=== PATIENT | male | born 1960 | race Caucasian/White ===

== ENCOUNTER 2018-07-29 08:50 | Day surgery (SDC) | payer MEDICAID ==
[2018-07-29] MEDS ORDERED: Sodium Chloride 0.9% 10 ML Syringe FLUSH PRN (09:00)
[2018-07-29] MEDS ORDERED: Sodium Chloride 0.9% 1,000 ML IV SCH (09:00)
[2018-07-29] MEDS ORDERED: Midazolam 1 MG/ML 2 ML SDV ONE (09:22)
[2018-07-29] MEDS ORDERED: Propofol 200 MG/20 ML SDV ONE ×2 (09:22→09:33)
[2018-07-29] MEDS ORDERED: Sodium Chloride 0.9% 1,000 ML ONE (10:10)
[2018-07-29] MEDS ORDERED: Midazolam 1 MG/ML 2 ML SDV IV ONE (10:21)
[2018-07-29] MEDS ORDERED: Propofol 200 MG/20 ML SDV IV ONE (10:21)
--- NOTE | 2018-07-29 10:23 | PCM.PN ---
- General Info Date of Service: 07/29/18 - Review of Systems Systems Review Comment:: 58 y/o male with history of colon polyps here for colonoscopy. He has a history of colon polyps. His last colonoscopy was 8 years ago. He is medically stable to proceed. He denies any recent colon symptoms. I have discussed the proposed colonoscopy with the patient. Risks such as but not limited to bleeding and GI injury reviewed. He appears to understand and agrees to proceed. His recent history and physical is reviewed and there is no significant changes noted. - Patient Data Vitals - Most Recent: Last Vital Signs Temp 97.8 F 07/29/18 09:00 Pulse 85 07/29/18 09:00 Resp 16 07/29/18 09:00 BP 122/84 07/29/18 09:00 Pulse Ox 98 07/29/18 09:00 Lab Results Last 24 Hours: Laboratory Results - last 24 hr 07/29/18 Range/Units 09:11 POC Glucose 107 H (74-106) mg/dl Med Orders - Current: Current Medications Sodium Chloride (Normal Saline) 1,000 mls @ 30 mls/hr IV ASDIRECTED SHAKIRA Sodium Chloride (Saline Flush) 10 ml FLUSH Q8HR PRN PRN Reason: keep vein open - Problem List Review Problem List Initiated/Reviewed/Updated: Yes - My Orders Last 24 Hours: My Active Orders 07/28/18 11:19 Resuscitation Status Routine 07/29/18 09:00 Blood Glucose Check, Bedside [RC] ONETIME Patient to Empty Bladder [RC] ASDIRECTED Peripheral IV Care [RC] . DIRECTED Verify Patient Consent Obtain [RC] ASDIRECTED Vital Signs [RC] PER UNIT ROUTINE Sodium Chloride 0.9% [Normal Saline] 1,000 ml IV ASDIRECTED Sodium Chloride 0.9% [Saline Flush] 10 ml FLUSH Q8HR PRN Peripheral IV Insertion Adult [OM.PC] Routine 07/29/18 Breakfast Nothing Per Oral Diet [DIET] - Assessment Assessment:: History of colon polyps - Plan Plan:: Colonoscopy
--- NOTE | 2018-07-29 11:08 | PCM.OPNOTE ---
- General Post-Op/Procedure Note Date of Surgery/Procedure: 07/29/18 Operative Procedure(s): Colonoscopy Findings: Moderate sized internal and external hemorrhoids Normal Colon Pre Op Diagnosis: History of Colon Polyps Post-Op Diagnosis: Hemorrhoids Anesthesia Technique: MAC Primary Surgeon: Francois Noland Pathology: none Output, Urine Amount: 0 EBL in mLs: 0 Complications: None Condition: Good
[2018-07-29 13:30] VITALS: BP 104/73
--- NOTE | 2018-07-29 17:17 | OR ---
DATE OF SURGERY: 07/29/2018 SURGEON: Francois Noland MD PREOPERATIVE DIAGNOSIS: History of colon polyps. POSTOPERATIVE DIAGNOSIS: Hemorrhoids. OPERATION PERFORMED: Colonoscopy. INDICATIONS FOR SURGERY: This 58-year-old male has a known history of colon polyps having been removed several years ago. He comes today for surveillance colonoscopy. FINDINGS: No polyps were seen on today's exam. The patient's colon appeared normal. He did have moderate to large size external and internal hemorrhoids. DESCRIPTION OF PROCEDURE: The patient was taken to the operating room. He was given intravenous sedation and with him in the left lateral decubitus position, digital rectal exam was performed. No rectal masses were noted. The Olympus colonoscope was inserted into the rectum. Retroflexed examination of the rectal canal was performed. The scope was then carefully advanced under direct visualization through the entire length of the colon until the cecum was reached. Cecal acquisition was confirmed by noting the normal internal cecal anatomy including the appendiceal orifice and ileocecal valve. The light was also noted to transilluminate the abdominal wall in the right lower quadrant. After examining the cecum, the scope was slowly withdrawn, sequentially re- examining the colonic segments. Once the entire colon and rectum had been fully examined, the scope was removed, and the patient was taken from the operating room in satisfactory condition. ESTIMATED BLOOD LOSS: Zero. COMPLICATIONS: None. PROGNOSIS: Good. /[id number]/MODL
== END 2018-07-29 12:15 | disposition home or self-care (01) ==
LOC: KA.SDS 08:50
PROVIDERS: ATTEND Surgery
DX: Z12.11 Encounter for screening for malignant neoplasm of colon (principal); Z86.010 Personal history of colon polyps; E11.9 Type 2 diabetes mellitus without complications; E78.00 Pure hypercholesterolemia, unspecified; I25.10 Atherosclerotic heart disease of native coronary artery without angina pectoris; I25.2 Old myocardial infarction; F17.210 Nicotine dependence, cigarettes, uncomplicated; Z79.1 Long term (current) use of non-steroidal anti-inflammatories (NSAID); Z79.4 Long term (current) use of insulin; Z79.82 Long term (current) use of aspirin; Z79.899 Other long term (current) drug therapy; Z86.73 Personal history of transient ischemic attack (TIA), and cerebral infarction without residual deficits; Z95.5 Presence of coronary angioplasty implant and graft
CPT/HCPCS: 45378; 82962; J2250; J2704